=== PATIENT | male | born 2000 | race African-American/Black ===

== ENCOUNTER 2025-08-20 14:33 | Emergency (ER) | payer OTHER ==
[~2025-08-20] VITALS: Ht 177.8 cm; Wt 71.0 kg
[2025-08-20 14:38] VITALS: O2SAT 98
[2025-08-20] MEDS ORDERED: IBUP-2030 MT (16:32)
[2025-08-20] MEDS: HYDROCODONE/ACETAMINOPHEN 5/325MG TABLET PO ONE (16:49)
[2025-08-20 16:52] VITALS: BP 127/81; PULSE 62; RESP 16; TEMP 36.8; O2SAT 98
== END 2025-08-20 16:55 | disposition home or self-care (01) ==
LOC: ER 14:33
DX: S09.90XA Unspecified injury of head, initial encounter (principal); M54.9 Dorsalgia, unspecified; M25.572 Pain in left ankle and joints of left foot; V49.9XXA Car occupant (driver) (passenger) injured in unspecified traffic accident, initial encounter; Y93.89 Activity, other specified; Y92.410 Unspecified street and highway as the place of occurrence of the external cause; Y99.8 Other external cause status
CPT/HCPCS: 73502; 72100; 73590; 73610; 70450; 70486; 99284; Z7610